=== PATIENT | male | born 1950 | race Caucasian/White ===

== ENCOUNTER 2016-10-08 17:53 | Inpatient (IN) | payer OTHER ==
[2016-10-08] MEDS ORDERED: SODIUM CHLORIDE 0.9% 1,000 ML IV ONE ×2 (18:16→19:30)
[2016-10-08] MEDS ORDERED: RX INFO: IV CONTRAST WAS GIVEN 1 EACH MISC MISCELLANE PRN (18:25)
[2016-10-08] MEDS ORDERED: AMPICILLIN-SULBACTAM 3 GM in SODIUM CHLORIDE 0.9% 100 ML IVPB STA (18:26)
[2016-10-08] MEDS ORDERED: VANCOMYCIN 1,000 MG in SODIUM CHLORIDE 0.9% 250 ML IVPB STA (18:26)
[2016-10-08] MEDS ORDERED: IV VANCOMYCIN PER PHARMACY 1 EACH MISC MISCELLANE PRN (18:26)
[2016-10-08] MEDS ORDERED: CLINDAMYCIN 900 MG in DEXTROSE 5% IN WATER 50 ML IVPB STA ×2 (18:26)
--- NOTE | 2016-10-08 18:30 | ED ---
General Adult HPI <Neri Avila - Last Filed: 10/08/16 21:07> - General Source: patient, RN notes reviewed Mode of arrival: ambulatory Limitations: no limitations <Irina Franklin - Last Filed: 10/09/16 03:37> - General Chief complaint: Skin/Abscess/Foreign Body Stated complaint: poss infection Time Seen by Provider: 10/08/16 18:05 - History of Present Illness Initial comments: This is a 66-year-old male who presents with a wound to the left testicle 3 days. Patient states he noticed some testicular swelling 3 days ago and was diagnosed with possible hernia by his PCP. Patient states the swelling went down, but the next day he noticed drainage from the left testicle. Patient states this got progressively worse and more purulent today. Patient denies any pain or fever/chills. Patient denies any medical history. Patient denies any recent fever, chills, shortness breath, chest pain, abdominal pain, nausea/ vomiting/diarrhea, back pain, numbness, tingling, dysuria, hematuria, headache, or visual changes, or any other complaints. (Irina Franklin) - Related Data Home Medications Medication Instructions Recorded Confirmed Cholecalciferol [Vitamin D3] 1,000 unit PO W/SUPPER 10/08/16 10/08/16 Cranberry Extract [Cranberry] 500 mg PO W/SUPPER 10/08/16 10/08/16 Garlic 1 tab PO W/SUPPER 10/08/16 10/08/16 Ibuprofen [Motrin] 800 mg PO TID PRN 10/08/16 10/08/16 Multivitamins, Thera [Multivitamin 1 tab PO W/SUPPER 10/08/16 10/08/16 (formulary)] Allergies Allergy/AdvReac Type Severity Reaction Status Date / Time No Known Allergies Allergy Verified 10/08/16 18:57 Review of Systems ROS Other: All systems not noted in ROS Statement are negative. <Neri Avila - Last Filed: 10/08/16 21:07> ROS Other: All systems not noted in ROS Statement are negative. <Irina Franklin - Last Filed: 10/09/16 03:37> ROS Statement: Those systems with pertinent positive or pertinent negative responses have been documented in the HPI. Past Medical History Past Medical History: Prostate Disorder Additional Past Medical History / Comment(s): hernia History of Any Multi-Drug Resistant Organisms: None Reported Past Psychological History: No Psychological Hx Reported Smoking Status: Current every day smoker Past Alcohol Use History: Occasional Past Drug Use History: None Reported <Irina Franklin - Last Filed: 10/09/16 03:37> General Exam <Neri Avila - Last Filed: 10/08/16 21:07> Limitations: no limitations exam: Present: scrotal swelling, other (Left scrotum is necrotic with excessive purulent drainage. Patient has an open wound to the left side groin. No tenderness to palpation.). Absent: testicular tenderness, urethral discharge <Irina Franklin - Last Filed: 10/09/16 03:37> - General Exam Comments Initial Comments: General: The patient is awake and alert, in no distress, and does not appear acutely ill. Eye: Pupils are equal, round and reactive to light, extra-ocular movements are intact. No nystagmus. There is normal conjunctiva bilaterally. No signs of icterus. Ears: TMs pink and pearly with intact cone of light bilaterally. Normal external ear canals Nose: Nasal turbinates pink and moist Mouth and throat: There are moist mucous membranes and no oral lesions. Neck: The neck is supple, there is no tenderness or JVD. Cardiovascular: There is a regular rate and rhythm. No murmur, rub or gallop is appreciated. Respiratory: Lungs are clear to auscultation, respirations are non-labored, breath sounds are equal. No wheezes, stridor, rales, or rhonchi. Gastrointestinal: Soft, non-distended, non-tender abdomen without masses or organomegaly noted. There is no rebound or guarding present. No CVA tenderness. Bowel sounds are unremarkable. Musculoskeletal: Normal ROM, no tenderness. Strength 5/5. Sensation intact. Radial pulses equal bilaterally 2+. Neurological: A&O x 3. CN II-XII intact, There are no obvious motor or sensory deficits. Coordination appears grossly intact. Speech is normal. Skin: See exam. Open wound of the left testicle with necrotic tissue present. Skin is warm and dry. Psychiatric: Cooperative, appropriate mood & affect, normal judgment. (Irina Franklin) EKG Findings - EKG Comments: EKG Findings:: An EKG was done at 1838 on 10/08/2016 showing normal sinus rhythm with left bundle branch block. Ventricular rate of 92, ID interval of 144, QRS duration of 124, QTC of 455. No acute ST changes. There is no old EKG for comparison. <Irina Franklin - Last Filed: 10/09/16 03:37> Medical Decision Making - Lab Data Result diagrams: 10/08/16 18:30 10/08/16 18:30 <Neri Avila - Last Filed: 10/08/16 21:07> - Lab Data Result diagrams: 10/08/16 18:30 10/08/16 18:30 <Irina Franklin - Last Filed: 10/09/16 03:37> - Medical Decision Making The patient was seen and examined. All diagnostics were reviewed. It is felt as though the possibility of a necrotizing fasciitis certainly is possible. The case is discussed with urology and they are in route to further evaluate the patient with possible surgical intervention. The case is discussed with PA and I agree with the findings as documented. (Neri Avila) This is a 66-year-old male who presents with a wound to the scrotum 3 days. On physical exam patient is well-appearing and afebrile. Left scrotum is necrotic with excessive purulent drainage. Patient has an open wound to the left side groin. No tenderness to palpation. No testicular tenderness or urethral discharge. Labs are drawn and reviewed. Patient is given IV fluids and started on Unasyn, clindamycin and vancomycin in case of necrotizing fasciitis. Blood cultures are pending. Wound cultures are pending. An EKG was done at 1838 on 10/08/2016 showing normal sinus rhythm with left bundle branch block. Ventricular rate of 92, ID interval of 144, QRS duration of 124, QTC of 455. No acute ST changes. There is no old EKG for comparison. CT of the abdomen and pelvis with contrast was done and reviewed showing: Dilated urinary bladder consistent with chronic bladder outlet obstruction. Enlarged prostate. Atherosclerotic vascular disease. Spondylosis in the lower lumbar spine. Cholelithiasis. There is diffuse gastric antral wall thickening that could relate to nonspecific gastritis. There is a 1.5 cm air bubble on the superior aspect of the gastric antrum that could be a diverticulum but the possibility of a gastric ulcer with perforation cannot be excluded. This is best seen on coronal image 24. Report by Dr. Fabian. Patient was given a Davis catheter. Dr. Avila spoke with on-call urologist Dr. Kuhn who is coming in to personally evaluate the patient. I spoke with Dr. Kuhn and patient is being admitted as an inpatient for surgery tomorrow. Patient is nothing by mouth after midnight. (Irina Franklin) - Lab Data Lab Results 10/08/16 10/08/16 10/08/16 Range/Units 18:30 18:30 18:30 WBC 13.3 H (3.8-10.6) k/uL RBC 3.06 L (4.30-5.90) m/uL Hgb 9.4 L (13.0-17.5) gm/dL Hct 28.6 L (39.0-53.0) % MCV 93.5 (80.0-100.0) fL MCH 30.8 (25.0-35.0) pg MCHC 33.0 (31.0-37.0) g/dL RDW 12.8 (11.5-15.5) % Plt Count 579 H (150-450) k/uL Neutrophils % 73 % Lymphocytes % 16 % Monocytes % 5 % Eosinophils % 3 % Basophils % 0 % Neutrophils # 9.7 H (1.3-7.7) k/uL Lymphocytes # 2.2 (1.0-4.8) k/uL Monocytes # 0.7 (0-1.0) k/uL Eosinophils # 0.4 (0-0.7) k/uL Basophils # 0.0 (0-0.2) k/uL PT (9.0-12.0) sec INR (<1.1) APTT (22.0-30.0) sec Sodium 141 (137-145) mmol/L Potassium 4.3 (3.5-5.1) mmol/L Chloride 105 (98-107) mmol/L Carbon Dioxide 26 (22-30) mmol/L Anion Gap 10 mmol/L BUN 32 H (9-20) mg/dL Creatinine 1.64 H (0.66-1.25) mg/dL Est GFR (MDRD) Af Amer 51 (>60 ml/min/1.73 sqM) Est GFR (MDRD) Non-Af 42 (>60 ml/min/1.73 sqM) Glucose 118 H (74-99) mg/dL Plasma Lactic Acid Favian 0.8 (0.7-2.0) mmol/L Calcium 8.8 (8.4-10.2) mg/dL Total Bilirubin 0.4 (0.2-1.3) mg/dL AST 23 (17-59) U/L ALT 20 L (21-72) U/L Alkaline Phosphatase 89 (38-126) U/L Total Creatine Kinase (55-170) U/L CK-MB (CK-2) (0.0-2.4) ng/mL CK-MB (CK-2) Rel Index Troponin I (0.000-0.034) ng/mL Total Protein 6.8 (6.3-8.2) g/dL Albumin 3.0 L (3.5-5.0) g/dL Urine Color Urine Appearance (Clear) Urine pH (5.0-8.0) Ur Specific [place] (1.001-1.035) Urine Protein (Negative) Urine Glucose (UA) (Negative) Urine Ketones (Negative) Urine Blood (Negative) Urine Nitrite (Negative) Urine Bilirubin (Negative) Urine Urobilinogen (<2.0) mg/dL Ur Leukocyte Esterase (Negative) Urine RBC (0-5) /hpf Urine WBC (0-5) /hpf Urine WBC Clumps (None) /hpf Urine Bacteria (None) /hpf 10/08/16 10/08/16 10/08/16 Range/Units 18:30 18:30 18:35 WBC (3.8-10.6) k/uL RBC (4.30-5.90) m/uL Hgb (13.0-17.5) gm/dL Hct (39.0-53.0) % MCV (80.0-100.0) fL MCH (25.0-35.0) pg MCHC (31.0-37.0) g/dL RDW (11.5-15.5) % Plt Count (150-450) k/uL Neutrophils % % Lymphocytes % % Monocytes % % Eosinophils % % Basophils % % Neutrophils # (1.3-7.7) k/uL Lymphocytes # (1.0-4.8) k/uL Monocytes # (0-1.0) k/uL Eosinophils # (0-0.7) k/uL Basophils # (0-0.2) k/uL PT 10.7 (9.0-12.0) sec INR 1.1 (<1.1) APTT 21.9 L (22.0-30.0) sec Sodium (137-145) mmol/L Potassium (3.5-5.1) mmol/L Chloride (98-107) mmol/L Carbon Dioxide (22-30) mmol/L Anion Gap mmol/L BUN (9-20) mg/dL Creatinine (0.66-1.25) mg/dL Est GFR (MDRD) Af Amer (>60 ml/min/1.73 sqM) Est GFR (MDRD) Non-Af (>60 ml/min/1.73 sqM) Glucose (74-99) mg/dL Plasma Lactic Acid Favian (0.7-2.0) mmol/L Calcium (8.4-10.2) mg/dL Total Bilirubin (0.2-1.3) mg/dL AST (17-59) U/L ALT (21-72) U/L Alkaline Phosphatase (38-126) U/L Total Creatine Kinase 34 L (55-170) U/L CK-MB (CK-2) 1.1 (0.0-2.4) ng/mL CK-MB (CK-2) Rel Index 3.2 Troponin I 0.017 (0.000-0.034) ng/mL Total Protein (6.3-8.2) g/dL Albumin (3.5-5.0) g/dL Urine Color Yellow Urine Appearance Turbid (Clear) Urine pH 5.5 (5.0-8.0) Ur Specific [place] 1.015 (1.001-1.035) Urine Protein 1+ H (Negative) Urine Glucose (UA) Negative (Negative) Urine Ketones Negative (Negative) Urine Blood Moderate H (Negative) Urine Nitrite Positive (Negative) Urine Bilirubin Negative (Negative) Urine Urobilinogen <2.0 (<2.0) mg/dL Ur Leukocyte Esterase Large H (Negative) Urine RBC 28 H (0-5) /hpf Urine WBC >182 H (0-5) /hpf Urine WBC Clumps Many H (None) /hpf Urine Bacteria Many H (None) /hpf Disposition <Neri Avila - Last Filed: 10/08/16 21:07> Decision Time: 22:28 <Irina Farnklin - Last Filed: 10/09/16 03:37> Clinical Impression: Acute kidney injury, Renal failure, Anemia, Leukocytosis, BPH (benign prostatic hyperplasia), Bladder outlet obstruction, Necrotizing fasciitis Disposition: ADMITTED IP TO THIS HOSP
[2016-10-08 19:16] LABS: Basophils % (A) 0 %; CH 30.1; CHCM 32.3; Eosinophils # (A) 0.4 k/uL (0-0.7); Eosinophils % (A) 3 %; HCT 28.6 % (39.0-53.0); HDW 2.44; HGB 9.4 gm/dL (13.0-17.5); Luc # (Auto) 0.28; Luc % (Auto) 2; Lymphocytes # (A) 2.2 k/uL (1.0-4.8); Lymphocytes % (A) 16 %; MCH 30.8 pg (25.0-35.0); MCV 93.5 fL (80.0-100.0); Mean Platelet Volume 7.3; Monocytes # (A) 0.7 k/uL (0-1.0); Monocytes % (A) 5 %; Neutrophils # (A) 9.7 k/uL (1.3-7.7); Neutrophils % (A) 73 %; RBC 3.06 m/uL (4.30-5.90); RDW 12.8 % (11.5-15.5); WBC 13.3 k/uL (3.8-10.6); WBC (Perox) 13.59
[2016-10-08 19:22] LABS: Calcium 8.8 mg/dL (8.4-10.2); Potassium 4.3 mmol/L (3.5-5.1); Total Bilirubin 0.4 mg/dL (0.2-1.3); Total Protein 6.8 g/dL (6.3-8.2)
[2016-10-08 19:26] LABS: INR 1.1 (<1.1)
[2016-10-08 19:27] LABS: Prothrombin Time 10.7 sec (9.0-12.0)
[2016-10-08 19:51] LABS: Appearance,Urine Turbid (Clear); Bacteria,Urine Many /hpf; Bilirubin,Urine Negative (Negative); Glucose,Urine (UA) Negative (Negative); Ketones,Urine Negative (Negative); Leukocyte Esterase,Urine Large (Negative); Nitrite,Urine Positive (Negative); PH, Urine 5.5 (5.0-8.0); Particle Count 47385; Protein,Urine 1+ (Negative); RBC,Urine 28 /hpf (0-5); Specific Gravity,Urine 1.015 (1.001-1.035); UA Billing (MACRO vs. MICRO) MICRO; Urobilinogen,Urine <2.0 mg/dL (<2.0); WBC,Urine >182 /hpf (0-5)
[2016-10-08 20:05] LABS: Partial Thromboplastin Time 21.9 sec (22.0-30.0)
--- NOTE | 2016-10-08 20:11 | CT ---
EXAMINATION TYPE: CT abdomen pelvis wo con DATE OF EXAM: 10/08/2016 8:02 PM COMPARISON: NONE HISTORY: Pt states of inguinal hernia. Abdominal pain CT DLP: 961. mGycm Automated exposure control for dose reduction was used. TECHNIQUE: Helical acquisition of images was performed from the lung bases through the pelvis. FINDINGS: Lung bases are clear. There is no pleural effusion. Heart size is normal. Liver spleen pancreas appear normal. There is a 1 cm calcified gallstone. Gallbladder is not dilated. There is thickening of the gastric antrum wall. There is no adrenal mass. Kidneys show normal size and contour. There is no hydronephrosis. There are prostatic calcifications with enlarged prostate. Bladder distends smoothly. Bladder is somewhat dila marcus. Bladder measures 16 cm in length. There are spondylotic changes in the lumbar spine. There is at herosclerotic vascular calcification. There is no sign of a bowel obstruction. There is no evidence o f inguinal hernia. IMPRESSION: DILATED URINARY BLADDER CONSISTENT WITH CHRONIC BLADDER OUTLET OBSTRUCTION. ENLARGED PROSTATE. ATHERO SCLEROTIC VASCULAR DISEASE. SPONDYLOSIS IN THE LOWER LUMBAR SPINE. CHOLELITHIASIS. THERE IS DIFFUSE GASTRIC ANTRAL WALL THICKENING THAT COULD RELATE TO NONSPECIFIC GASTRITIS. THERE IS A 1.5 CM AIR BUBBLE ON THE SUPERIOR ASPECT OF THE GASTRIC ANTRUM THAT COULD BE A DIVERTICULUM BUT THE POSSIBILITY OF A GASTRIC ULCER WITH PERFORATION CANNOT BE EXCLUDED. THIS IS BEST SEEN ON CORONAL DACIA GE 24.
[2016-10-08 21:15] LABS: Creatine Kinase MB 1.1 ng/mL (0.0-2.4); Troponin I 0.017 ng/mL (0.000-0.034)
--- NOTE | 2016-10-08 22:21 | P.GSHP ---
History of Present Illness H&P Date: 10/08/16 Chief Complaint: Scrotal swelling The patient is a 66-year-old white male with an unremarkable urologic history. Approximately 2 weeks ago, he developed left inguinal/scrotal swelling. He is a vague historian. The swelling was progressive, and became significant. Approximately 3 days ago, his scrotum "fell apart". Since that time, the swelling has improved significantly. He states that he did not come to the hospital due to his lack of insurance. - Constitutional Constitutional: Denies chills, Denies fever - Cardiovascular Cardiovascular: Denies chest pain - Respiratory Respiratory: Denies dyspnea - Genitourinary (Female) Genitourinary: Denies dysuria, Denies hematuria Past Medical History Past Medical History: Prostate Disorder Additional Past Medical History / Comment(s): hernia History of Any Multi-Drug Resistant Organisms: None Reported Past Psychological History: No Psychological Hx Reported Smoking Status: Current every day smoker Past Alcohol Use History: Occasional Past Drug Use History: None Reported Medications and Allergies Home Medications Medication Instructions Recorded Confirmed Type Cholecalciferol [Vitamin D3] 1,000 unit PO W/SUPPER 10/08/16 10/08/16 History Cranberry Extract [Cranberry] 500 mg PO W/SUPPER 10/08/16 10/08/16 History Garlic 1 tab PO W/SUPPER 10/08/16 10/08/16 History Ibuprofen [Motrin] 800 mg PO TID PRN 10/08/16 10/08/16 History Multivitamins, Thera [Multivitamin 1 tab PO W/SUPPER 10/08/16 10/08/16 History (formulary)] Allergies Allergy/AdvReac Type Severity Reaction Status Date / Time No Known Allergies Allergy Verified 10/08/16 18:57 Surgical - Exam Vital Signs Temp Pulse Resp BP Pulse Ox 98.2 F 102 H 20 148/72 98 10/08/16 17:58 10/08/16 17:58 10/08/16 17:58 10/08/16 17:58 10/08/16 17:58 - General well developed, well nourished, no distress - Respiratory normal respiratory effort - Abdomen Abdomen: soft, non tender, no guarding, no rigid, no rebound - Genitourinary normal penis with no external lesions, other (The left fly-scrotum has opened, exposing the left testicle. Necrotic skin overlies the left testicle, with a black eschar appearance. This necrotic skin has from the surrounding viable skin. There is mild purulent drainage. There is no fluctuance. The right testicle is contained within the right hemiscrotum and is palpably normal. ) - Psychiatric oriented to time, oriented to person, oriented to place, speech is normal, memory intact Results - Labs 10/08/16 18:30 10/08/16 18:30 Abnormal Lab Results - Last 24 Hours (Table) 10/08/16 10/08/16 10/08/16 Range/Units 18:30 18:30 18:30 WBC 13.3 H (3.8-10.6) k/uL RBC 3.06 L (4.30-5.90) m/uL Hgb 9.4 L (13.0-17.5) gm/dL Hct 28.6 L (39.0-53.0) % Plt Count 579 H (150-450) k/uL Neutrophils # 9.7 H (1.3-7.7) k/uL APTT 21.9 L (22.0-30.0) sec BUN 32 H (9-20) mg/dL Creatinine 1.64 H (0.66-1.25) mg/dL Glucose 118 H (74-99) mg/dL ALT 20 L (21-72) U/L Total Creatine Kinase (55-170) U/L Albumin 3.0 L (3.5-5.0) g/dL Urine Protein (Negative) Urine Blood (Negative) Ur Leukocyte Esterase (Negative) Urine RBC (0-5) /hpf Urine WBC (0-5) /hpf Urine WBC Clumps (None) /hpf Urine Bacteria (None) /hpf 10/08/16 10/08/16 Range/Units 18:30 18:35 WBC (3.8-10.6) k/uL RBC (4.30-5.90) m/uL Hgb (13.0-17.5) gm/dL Hct (39.0-53.0) % Plt Count (150-450) k/uL Neutrophils # (1.3-7.7) k/uL APTT (22.0-30.0) sec BUN (9-20) mg/dL Creatinine (0.66-1.25) mg/dL Glucose (74-99) mg/dL ALT (21-72) U/L Total Creatine Kinase 34 L (55-170) U/L Albumin (3.5-5.0) g/dL Urine Protein 1+ H (Negative) Urine Blood Moderate H (Negative) Ur Leukocyte Esterase Large H (Negative) Urine RBC 28 H (0-5) /hpf Urine WBC >182 H (0-5) /hpf Urine WBC Clumps Many H (None) /hpf Urine Bacteria Many H (None) /hpf Diabetes panel 10/08/16 Range/Units 18:30 Sodium 141 (137-145) mmol/L Potassium 4.3 (3.5-5.1) mmol/L Chloride 105 (98-107) mmol/L Carbon Dioxide 26 (22-30) mmol/L BUN 32 H (9-20) mg/dL Creatinine 1.64 H (0.66-1.25) mg/dL Glucose 118 H (74-99) mg/dL Calcium 8.8 (8.4-10.2) mg/dL AST 23 (17-59) U/L ALT 20 L (21-72) U/L Alkaline Phosphatase 89 (38-126) U/L Total Protein 6.8 (6.3-8.2) g/dL Albumin 3.0 L (3.5-5.0) g/dL Calcium panel 10/08/16 Range/Units 18:30 Calcium 8.8 (8.4-10.2) mg/dL Albumin 3.0 L (3.5-5.0) g/dL Pituitary panel 10/08/16 Range/Units 18:30 Sodium 141 (137-145) mmol/L Potassium 4.3 (3.5-5.1) mmol/L Chloride 105 (98-107) mmol/L Carbon Dioxide 26 (22-30) mmol/L BUN 32 H (9-20) mg/dL Creatinine 1.64 H (0.66-1.25) mg/dL Glucose 118 H (74-99) mg/dL Calcium 8.8 (8.4-10.2) mg/dL Adrenal panel 10/08/16 Range/Units 18:30 Sodium 141 (137-145) mmol/L Potassium 4.3 (3.5-5.1) mmol/L Chloride 105 (98-107) mmol/L Carbon Dioxide 26 (22-30) mmol/L BUN 32 H (9-20) mg/dL Creatinine 1.64 H (0.66-1.25) mg/dL Glucose 118 H (74-99) mg/dL Calcium 8.8 (8.4-10.2) mg/dL Total Bilirubin 0.4 (0.2-1.3) mg/dL AST 23 (17-59) U/L ALT 20 L (21-72) U/L Alkaline Phosphatase 89 (38-126) U/L Total Protein 6.8 (6.3-8.2) g/dL Albumin 3.0 L (3.5-5.0) g/dL - Imaging CT scan - abdomen: report reviewed, image reviewed Assessment and Plan (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 He will be admitted for IV antibiotics, and will undergo surgical debridement. The rationale for this has been discussed in detail with the patient. Surgical risks include anesthesia, bleeding, and testicular injury. He understands that intraoperative findings may necessitate more debridement than what might be anticipated by looking at his scrotum. I also explained that the wound could not be closed primarily, and that the wound will heal secondarily. I discussed that this will be a lengthy process, and that he may require additional debridement procedures. He currently has an open wound, which is draining freely, with no areas of fluctuance. The necrotic skin has from the surrounding skin, and he is both afebrile and hemodynamically stable. For this reason, I do not perceive this to be an emergent procedure. Rather, it will be performed tomorrow. Incidentally, the computed tomography scan showed evidence of urinary retention, and a Davis catheter was placed. 1 L of urine was drained from the bladder, at which time the catheter was clamped. The catheter will remain in place throughout the perioperative period. Time with Patient: Greater than 30
[2016-10-09] MEDS: PIPERACILLIN-TAZOBACTAM 3.375 GM in DEXTROSE/WATER 1 50ML.BAG IVPB SCH ×4 (01:22→23:52)
[2016-10-09 02:13] VITALS: BMI 26.6
[2016-10-09] MEDS: DEXTROSE 5%-LACTATED RINGERS 1,000 ML IV SCH ×2 (02:25→22:39)
[2016-10-09] MEDS: HEPARIN SODIUM,PORCINE 5,000 UNIT/ML 1 ML VIAL SQ SCH ×3 (08:31→20:01)
[2016-10-09] MEDS: VANCOMYCIN 1,500 MG in SODIUM CHLORIDE 0.9% 250 ML IVPB SCH ×2 (08:31→10:35)
[2016-10-09 10:45] LABS: Anion Gap 9 mmol/L; Basophils # (A) 0.1 k/uL (0-0.2); Basophils % (A) 1 %; Blood Urea Nitrogen 19 mg/dL (9-20); CHCM 31.7; Calcium 8.4 mg/dL (8.4-10.2); Carbon Dioxide 24 mmol/L (22-30); Chloride 110 mmol/L (98-107); Eosinophils # (A) 0.3 k/uL (0-0.7); Eosinophils % (A) 3 %; Glucose 137 mg/dL (74-99); HCT 26.5 % (39.0-53.0); HDW 2.47; HGB 8.7 gm/dL (13.0-17.5); Luc # (Auto) 0.24; Luc % (Auto) 2; Lymphocytes # (A) 1.6 k/uL (1.0-4.8); Lymphocytes % (A) 16 %; MCH 31.3 pg (25.0-35.0); MCHC 32.8 g/dL (31.0-37.0); MCV 95.2 fL (80.0-100.0); Mean Platelet Volume 6.6; Monocytes # (A) 0.5 k/uL (0-1.0); Monocytes % (A) 5 %; Neutrophils # (A) 7.4 k/uL (1.3-7.7); Neutrophils % (A) 73 %; Non-African American GFR(MDRD) 51 (>60 ml/min/1.73 sqM); Potassium 4.3 mmol/L (3.5-5.1); RBC 2.79 m/uL (4.30-5.90); Sodium 143 mmol/L (137-145); WBC 10.2 k/uL (3.8-10.6); WBC (Perox) 10.69
[2016-10-09] MEDS ORDERED: IV FLUID CONTINUATION 1,000 ML IV ONE ×2 (11:25→13:03)
[2016-10-09] MEDS ORDERED: fentaNYL (PF) 50 MCG/ML 2 ML AMP ONE (12:14)
[2016-10-09] MEDS ORDERED: MIDAZOLAM 2 MG/2 ML VIAL ONE (12:14)
[2016-10-09] MEDS ORDERED: LACTATED RINGERS 1,000 ML IV ONE (12:45)
--- NOTE | 2016-10-09 13:10 | P.OP ---
Date of Procedure: 10/09/16 Preoperative Diagnosis: Necrotizing Fasciitis of the Scrotum Postoperative Diagnosis: Same Procedure(s) Performed: Scrotal Debridement Anesthesia: spinal Surgeon: Howard Kuhn Estimated Blood Loss (ml): 5 IV fluids (ml): 500 Pathology: other (Necrotic tissue for aerobic and anaerobic culture) Condition: stable Disposition: PACU Indications for Procedure: The patient is a 66-year-old white male admitted last night with necrotizing fasciitis of the left hemiscrotum. The wound opened spontaneously and drained 3 days prior to admission. He now feels much better and comes for debridement of the necrotic tissue. Operative Findings: Necrotic left scrotal skin. Description of Procedure: The patient was taken to the operating room and placed in the supine position, with his legs frog legged. The external genitalia was prepped and draped sterilely. The left testicle was visible, covered with tunica vaginalis intact. The skin was necrotic. This was excised sharply using Metzenbaum scissors. The excised necrotic skin was sent for cultures (aerobic and anaerobic). The underlying wound cavity was examined. The urethra was palpable , but the Davis catheter could not be palpated, thus implying that the integrity of the urethra was intact. The wound did not tract in any direction, such as the left inguinal canal or the perineum. The wound was irrigated with normal saline repeatedly, and a small amount of additional necrotic tissue was identified and excised. Upon completion of the procedure, there was no visible purulence or necrotic tissue. A 2 inch Daniel was moistened with 0.9 normal saline, and this was used to pack the wound. The wound was then covered with fluffs, followed by scrotal support. A sponge count was correct. The Davis catheter was left to gravity drainage. The patient tolerated the procedure well and was taken to the recovery room in stable condition.
[2016-10-10] MEDS: DEXTROSE 5%-LACTATED RINGERS 1,000 ML IV SCH ×3 (00:27→22:09)
[2016-10-10] MEDS ORDERED: VANCOMYCIN 1,500 MG in SODIUM CHLORIDE 0.9% 250 ML IVPB SCH ×3 (06:00)
[2016-10-10] MEDS: MORPHINE SULFATE 2 MG/ML SYRINGE IV PRN ×2 (06:28→15:31)
[2016-10-10] MEDS: PIPERACILLIN-TAZOBACTAM 3.375 GM in DEXTROSE/WATER 1 50ML.BAG IVPB SCH ×3 (07:44→23:31)
[2016-10-10] MEDS: HEPARIN SODIUM,PORCINE 5,000 UNIT/ML 1 ML VIAL SQ SCH ×2 (09:14→20:34)
[2016-10-10 09:48] LABS: Anion Gap 8 mmol/L; Blood Urea Nitrogen 16 mg/dL (9-20); Calcium 8.2 mg/dL (8.4-10.2); Carbon Dioxide 25 mmol/L (22-30); Chloride 106 mmol/L (98-107); Glucose 217 mg/dL (74-99); Non-African American GFR(MDRD) 52 (>60 ml/min/1.73 sqM); Potassium 3.8 mmol/L (3.5-5.1); Sodium 139 mmol/L (137-145)
--- NOTE | 2016-10-10 15:29 | P.PN ---
Progress Note - Text The patient reports minimal scrotal pain. His Davis catheter is in place and draining well. The scrotal wound is clean. A portion of the packing was removed, and dressing changes will be initiated today. I explained the importance of wound care to the patient, and the importance of education for both he and his as they will be responsible for his wound care upon discharge. Preliminary urine cultures have shown gram-negative bacilli, and tissue cultures have shown gram-negative bacilli and staph aureus. He will continue to receive Zosyn, pending the final culture results.
[2016-10-11 07:59] LABS: Basophils # (A) 0.1 k/uL (0-0.2); Basophils % (A) 1 %; CH 30.5; Eosinophils # (A) 0.4 k/uL (0-0.7); Eosinophils % (A) 4 %; HCT 26.8 % (39.0-53.0); HDW 2.45; HGB 8.5 gm/dL (13.0-17.5); Luc % (Auto) 2; Lymphocytes # (A) 1.9 k/uL (1.0-4.8); Lymphocytes % (A) 20 %; MCH 30.5 pg (25.0-35.0); MCHC 31.8 g/dL (31.0-37.0); MCV 95.8 fL (80.0-100.0); Mean Platelet Volume 6.9; Monocytes # (A) 0.5 k/uL (0-1.0); Monocytes % (A) 5 %; Neutrophils # (A) 6.5 k/uL (1.3-7.7); Neutrophils % (A) 69 %; RDW 13.6 % (11.5-15.5); WBC 9.5 k/uL (3.8-10.6); WBC (Perox) 9.46
[2016-10-11 08:03] LABS: Anion Gap 8 mmol/L; Blood Urea Nitrogen 14 mg/dL (9-20); Calcium 8.5 mg/dL (8.4-10.2); Carbon Dioxide 26 mmol/L (22-30); Chloride 105 mmol/L (98-107); Glucose 133 mg/dL (74-99); Non-African American GFR(MDRD) 50 (>60 ml/min/1.73 sqM); Potassium 3.6 mmol/L (3.5-5.1); Sodium 139 mmol/L (137-145)
[2016-10-11] MEDS: PIPERACILLIN-TAZOBACTAM 3.375 GM in DEXTROSE/WATER 1 50ML.BAG IVPB SCH (09:07)
[2016-10-11] MEDS: HEPARIN SODIUM,PORCINE 5,000 UNIT/ML 1 ML VIAL SQ SCH ×2 (09:08→21:46)
--- NOTE | 2016-10-11 13:03 | P.PN ---
Progress Note - Text The patient's condition is essentially unchanged. The Davis catheter remains in place, and the urine is clear. He reports only minimal discomfort. The scrotal wound is clean, without drainage. His was taught to pack the wound yesterday, and will undergo additional teaching today. The urine culture has shown pansensitive E. coli. Tissue cultures (preliminary) reveal E. coli, presumptive staph aureus, and group B strep. Zosyn will be changed to Ancef, and I anticipate that he will be discharged home tomorrow with the Davis catheter.
[2016-10-11] MEDS: MORPHINE SULFATE 2 MG/ML SYRINGE IV PRN ×2 (14:40→21:42)
[2016-10-11] MEDS ORDERED: ceFAZolin 1 GM in SODIUM CHLORIDE 0.9% 100 ML IVPB SCH (16:00)
[2016-10-11] MEDS: ceFAZolin 1,000 MG in DEXTROSE/WATER 1 50ML.BAG IVPB SCH ×2 (16:58→23:47)
[2016-10-11] MEDS: DEXTROSE 5%-LACTATED RINGERS 1,000 ML IV SCH (17:01)
[2016-10-12] MEDS: DEXTROSE 5%-LACTATED RINGERS 1,000 ML IV SCH (07:10)
[2016-10-12] MEDS: ceFAZolin 1,000 MG in DEXTROSE/WATER 1 50ML.BAG IVPB SCH ×2 (08:26→17:17)
[2016-10-12 09:05] LABS: Anion Gap 8 mmol/L; Blood Urea Nitrogen 15 mg/dL (9-20); Calcium 8.3 mg/dL (8.4-10.2); Carbon Dioxide 27 mmol/L (22-30); Chloride 102 mmol/L (98-107); Glucose 191 mg/dL (74-99); Non-African American GFR(MDRD) 57 (>60 ml/min/1.73 sqM); Potassium 3.4 mmol/L (3.5-5.1); Sodium 137 mmol/L (137-145)
[2016-10-12] MEDS: HEPARIN SODIUM,PORCINE 5,000 UNIT/ML 1 ML VIAL SQ SCH (11:30)
[2016-10-12 15:43] VITALS: BP 154/74; PULSE 74; RESP 16; TEMP 98.3
[2016-10-12] MEDS: MORPHINE SULFATE 2 MG/ML SYRINGE IV PRN (17:31)
--- NOTE | 2016-10-12 18:13 | P.DS ---
Providers Date of admission: 10/08/16 22:01 Expected date of discharge: 10/12/16 Attending physician: Howard Kuhn Primary care physician: Hellen Larios - Discharge Diagnosis(es) (1) Lurdes's gangrene of scrotum Current Visit: Yes Status: Acute Priority: High (2) Urinary retention Current Visit: Yes Status: Acute Priority: Medium Hospital Course: The patient presented to the emergency room on 10/08/2016 with findings consistent with necrotizing fasciitis of the left hemiscrotum. He was found to be in urinary retention. A Davis catheter was placed, with a return of over 1 L , and he underwent scrotal debridement on 10/09/2016. Urine cultures showed E. coli. Scrotal tissues cultures showed E. coli and staph aureus. Both organisms were sensitive to cephalosporins. The patient remained afebrile throughout the hospitalization. Dressing changes were initiated on October 10, and the patient's was instructed on care. At the time of discharge, the incision was clean, with no areas of fluctuance, necrosis, or purulence. Procedures: Scrotal debridement on 10/09/2016. Patient Condition at Discharge: Good Plan - Discharge Summary New Discharge Prescriptions: Cephalexin [Keflex] 500 mg PO Q8HR #30 cap Hydrocodone/Acetaminophen [[place] 5-325] 1 - 2 each PO Q4HR PRN #30 tab PRN Reason: Pain Discharge Medication List Cholecalciferol [Vitamin D3] 1,000 unit PO W/SUPPER 10/08/16 [History] Cranberry Extract [Cranberry] 500 mg PO W/SUPPER 10/08/16 [History] Garlic 1 tab PO W/SUPPER 10/08/16 [History] Ibuprofen [Motrin] 800 mg PO TID PRN 10/08/16 [History] Multivitamins, Thera [Multivitamin (formulary)] 1 tab PO W/SUPPER 10/08/16 [ History] Cephalexin [Keflex] 500 mg PO Q8HR #30 cap 10/12/16 [Rx] Hydrocodone/Acetaminophen [[place] 5-325] 1 - 2 each PO Q4HR PRN #30 tab 10/12/16 [Rx] Follow up Appointment(s)/Referral(s): Ric Macedo MD [Primary Care Provider] - 1-2 days Howard Kuhn MD [STAFF PHYSICIAN] - 1 Week Activity/Diet/Wound Care/Special Instructions: Discharge home with Davis catheter. Okay to shower or bathe (no bubble bath). No strenuous activity. Dressing change should be performed twice daily, using 4 x 4 gauze moistened with 0.9 normal saline. Discharge Disposition: HOME SELF-CARE
== END 2016-10-12 19:12 | disposition home or self-care (01) | DRG 727 ==
LOC: EC 17:53 → 4MS4W 22:01
PROVIDERS: ADMIT Urology; ATTEND Urology
PROC: 0VB5XZZ Excision of Scrotum, External Approach (ICD-10-PCS; principal; 2016-10-09 09:00)
DX: N49.3 Fournier gangrene (principal); M72.6 Necrotizing fasciitis; N17.9 Acute kidney failure, unspecified; N40.1 Benign prostatic hyperplasia with lower urinary tract symptoms; R33.8 Other retention of urine; D64.9 Anemia, unspecified; F17.200 Nicotine dependence, unspecified, uncomplicated; I44.7 Left bundle-branch block, unspecified; N32.0 Bladder-neck obstruction; Z79.899 Other long term (current) drug therapy
CPT/HCPCS: 36415; 74176; 80048; 80053; 81001; 82550; 82553; 83605; 84484; 85025; 85610; 85730; 87040; 87070; 87075; 87077; 87086; 87186; 87205; 93005; 96365; 96366; 96367; 99285

== ENCOUNTER 2016-10-24 10:00 | Emergency (ER) | payer OTHER ==
[2016-10-24 10:39] VITALS: RESP 18
--- NOTE | 2016-10-24 12:52 | ED ---
Recheck HPI - General Chief Complaint: Recheck/Abnormal Lab/Rx Stated Complaint: leak in leg bag Time Seen by Provider: 10/24/16 12:02 Source: patient Mode of arrival: ambulatory Limitations: no limitations - History of Present Illness Initial Comments: Patient is a 66-year-old white male presenting to the emergency department with complaints of leakage from his urine bag that he noticed this morning after he woke up. Patient recently underwent scrotal debridement for necrotizing fasciitis and placement of Davis catheter for urinary retention on 10/09/[address] Mcdaniel. Patient states that he last saw Dr. Mcdaniel in the office yesterday where he was told his Davis catheter will be removed next Wednesday. Patient states he is currently undergoing dressing changes to his wound performed by his . No history of fevers, chills, nausea, vomiting, shortness of breath, chest pain, abdominal pain, or hematuria. Returns Today for: other (Leaky urine bag) Symptoms Since Prior Visit: no new symptoms Context: called for abnormal lab result Associated Symptoms: none Treatments Prior to Arrival: dressings, urinary catheter in place - Related Data Home Medications Medication Instructions Recorded Confirmed Cholecalciferol [Vitamin D3] 1,000 unit PO W/SUPPER 10/08/16 10/24/16 Cranberry Extract [Cranberry] 500 mg PO W/SUPPER 10/08/16 10/24/16 Garlic 1 tab PO W/SUPPER 10/08/16 10/24/16 Ibuprofen [Motrin] 800 mg PO TID PRN 10/08/16 10/24/16 Multivitamins, Thera [Multivitamin 1 tab PO W/SUPPER 10/08/16 10/24/16 (formulary)] Previous Rx's Medication Instructions Recorded Hydrocodone/Acetaminophen [Como 1 - 2 each PO Q4HR PRN #30 tab 10/12/16 5-325] Allergies Allergy/AdvReac Type Severity Reaction Status Date / Time No Known Allergies Allergy Verified 10/24/16 10:39 Review of Systems ROS Statement: Those systems with pertinent positive or pertinent negative responses have been documented in the HPI. ROS Other: All systems not noted in ROS Statement are negative. Past Medical History Past Medical History: Prostate Disorder Additional Past Medical History / Comment(s): hernia History of Any Multi-Drug Resistant Organisms: None Reported Past Surgical History: Appendectomy Additional Past Surgical History / Comment(s): abd surg Past Psychological History: No Psychological Hx Reported Smoking Status: Current every day smoker Past Alcohol Use History: Occasional Past Drug Use History: None Reported General Exam - General Exam Comments Initial Comments: GENERAL: Pt awake and alert, well-appearing, well-nourished, and in no acute distress. HEAD: Atraumatic, normocephalic. EYES: Pupils equal, round, and reactive to light, extraocular movements intact, sclera anicteric, conjunctiva are normal. ENT: Oropharynx clear without exudates. Moist mucous membranes. NECK:Supple without lymphadenopathy or JVD. LUNGS: Breath sounds clear to auscultation bilaterally. No wheezes, rales, or rhonchi. HEART: Heart S1, S2, no S3 or S4. Regular rate and rhythm. No murmurs, rubs or gallops. ABDOMEN: Soft, nontender, nondistended, normoactive bowel sounds. No guarding, no rebound. No masses or organomegaly appreciated. Indwelling Davis catheter to dependent drainage with small leak noted to urine bag. EXTREMITIES: 2+ peripheral pulses. No edema. No calf tenderness. NEUROLOGICAL: Pt oriented x 3. No focal deficits noted. Strength and sensation grossly intact. PSYCH: Normal mood, normal affect. SKIN: Warm, dry, intact. Normal turgor. Dressing to the scrotum dry and intact. Limitations: no limitations Course Vital Signs 10/24/16 10:36 Temperature 97.9 F Pulse Rate 89 Respiratory 18 Rate Blood Pressure 142/82 O2 Sat by Pulse 99 Oximetry Medical Decision Making - Medical Decision Making Patient is a 58-year-old white male presenting to the emergency department with complaints of leaking urine bag that was inserted on 10/09/2016 secondary to urinary retention. Patient also underwent debridement of scrotum for necrotizing fasciitis. Urinary bag changed. Patient instructed to follow-up with Dr. Mcdaniel or return with new symptoms. Patient agrees with treatment plan. Disposition Clinical Impression: Urinary retention, Presence of indwelling Davis catheter Disposition: HOME SELF-CARE Condition: Good Instructions: Davis Catheter Placement and Care (ED) Additional Instructions: Please follow-up with Dr. Mcdaniel on Wednesday as previously scheduled. Please return to the emergency department with new symptoms or if symptoms worsen. Referrals: Ric Macedo MD [Primary Care Provider] - 1-2 days Howard Kuhn MD [STAFF PHYSICIAN] - 1-2 days Time of Disposition: 12:51
[2016-10-24 13:35] VITALS: BP 140/68; PULSE 80; TEMP 98
== END 2016-10-24 13:34 | disposition home or self-care (01) ==
LOC: EC 10:00
DX: R33.9 Retention of urine, unspecified (principal); T83.031A Leakage of indwelling urethral catheter, initial encounter; F17.200 Nicotine dependence, unspecified, uncomplicated; Z98.890 Other specified postprocedural states; Z90.49 Acquired absence of other specified parts of digestive tract; Z79.899 Other long term (current) drug therapy
CPT/HCPCS: 99283